=== PATIENT | female | born 1950 | race Caucasian/White ===

== ENCOUNTER 2020-10-11 10:53 | Emergency (ER) | payer MEDICARE ==
[~2020-10-11] VITALS: Ht 165.1 cm; Wt 63.1 kg
[~2020-10-11 10:53] MED LIST: ACID1TAB7 PO; FLUT1BLS INH; GLIM4TAB PO; GLIP5TAB10 PO; INSU100C SQ-INSULIN; IPRA3AMP30 NPPB; IPRA4AER INH; LEVO500T47 PO; LINA1TAB5 PO; NICO-587 TD; PRED10TA14 PO; SIMV20TA19 PO; TRAM50TA2 PO; ZOLP10TA PO
--- NOTE | 2020-10-11 11:17 | NUR ---
Placed on 2L O2 in triage.
--- NOTE | 2020-10-11 11:26 | NUR ---
Pt moved from room 4 to room 1 with garage doors down and pt in a gown. Pt states she has been having off/on SI for the last 3 weeks due to eviction notice and living with an alcoholic for many years. 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 Pt gave verbal contract not to harm herself and belongings searched with no weapons present. Pt wants inpatient psych admit due to extreme feelings of powerlessness and hopelessness.
--- NOTE | 2020-10-11 11:42 | NUR ---
patent law specialist at bedside for evaluation at this time.
--- NOTE | 2020-10-11 12:00 | NUR ---
Report given to DIANA Kulkarni for meal break coverage and care transferred PLASTIC FRAME INSERTER for psych assessment remains in room at this time.
--- NOTE | 2020-10-11 12:15 | NUR ---
TASK RN: PT UP TO RESTROOM, COLLECTED URINE SAMPLE. SITTER OUTSIDE DOOR FOR SAFETY MONITORING.
--- NOTE | 2020-10-11 12:30 | NUR ---
Report received from meal break RN and care re-assumed. Pt with belongings packed at foot of bed awaiting registration for her cards before removal of all items and sitter in doorway for direct observation needs for pt safety. DIANA Kulkarni reports pt is being placed on a legal hold.
--- NOTE | 2020-10-11 12:32 | NUR ---
BETH RIVERA PT'S DAUGHTER, PT PROVIDED PHONE NUMBER FOR EMERGENCY.
[2020-10-11 12:39] LABS: BASOPHILS % (AUTO) 1 % (0-1); EOSINOPHILS % (AUTO) 1 % (1-7); LYMPHOCYTES % (AUTO) 20 % (22-44); MEAN CORPUSCULAR HEMOGLOBIN 30.4 pg (27.0-34.8); MEAN CORPUSCULAR HGB CONC 34.2 g/dL (32.4-35.8); MEAN PLATELET VOLUME 8.8 fL (7.4-10.4); MONOCYTES % (AUTO) 5 % (2-9); NEUTROPHILS % (AUTO) 74 % (42-75); PLATELET COUNT 240 x10^3/uL (130-400); RED BLOOD COUNT 6.34 x10^6/uL (3.82-5.3); RED CELL DISTRIBUTION WIDTH 14.1 % (9.6-15.2)
[2020-10-11 12:40] LABS: MD NO
[2020-10-11 12:49] LABS: ANION GAP 6 mmol/L (5-15); CHLORIDE 102 mmol/L (98-107); CREATININE 0.74 mg/dL (0.55-1.02)
[2020-10-11 12:50] LABS: ALBUMIN 3.9 g/dL (3.4-5.0); SALICYLATE LEVEL 3.4 mg/dL (2.8-20.0)
[2020-10-11] MEDS ORDERED: NICOTINE 21 MG/24 HR PATCH.TD24 TD PRN (13:00)
[2020-10-11] MEDS ORDERED: SERTRALINE 50MG TABLET PO SCH (13:00)
--- NOTE | 2020-10-11 13:06 | NUR ---
Belongings removed and locked in locker with H20 and socks removed. ED diet tray ordered.
[2020-10-11 13:09] LABS: AMPHETAMINE SCREEN, URINE Negative (Negative); BARBITURATE SCREEN, URINE Negative (Negative); BENZODIAZEPINE SCREEN, URINE Negative (Negative); CANNABINOID SCREEN, URINE Negative (Negative); COCAINE SCREEN, URINE Negative (Negative); METHADONE SCREEN, URINE Negative (Negative); OPIATE SCREEN, URINE Negative (Negative)
[2020-10-11] MEDS ORDERED: INSULIN REGULAR 100 UNITS/ML, 3ML VIAL IVPush ONE (13:30)
[2020-10-11] MEDS ORDERED: SODIUM CHLORIDE 0.9% 1,000ML IVBOLUS ONE (13:30)
[2020-10-11] MEDS ORDERED: LORazepam 0.5MG TABLET ONE (14:24)
[2020-10-11] MEDS ORDERED: SERTRALINE 50MG TABLET ONE (14:24)
[2020-10-11] MEDS ORDERED: INSULIN SINGLE DOSE, ER ONE (14:25)
[2020-10-11] MEDS ORDERED: LORazepam 0.5MG TABLET PO ONE (14:30)
--- NOTE | 2020-10-11 14:43 | NUR ---
IV started and NS bolus with medications ordered given as well. TIP CEMENTER for psych states FSBS recheck must be lowered before acceptance to floor allowed. Pt stated understanding of this.
--- NOTE | 2020-10-11 15:08 | NUR ---
FSBS reassessed with approx 400mL of NS bolus infused due to small size IV (22G) with noted result of 239. farmworker [employer] producing [employer] notified as well as throughput RN for [facility] notification for possible admission acceptance. Dinuba sandwaich on wheat provided. Removed chocolate chip cookies, milk, and potato chips from tray. Pt offered other drink than water and none requested.
--- NOTE | 2020-10-11 16:20 | NUR ---
Pt ate 80% of sandwich provided and re-wrapped last portion for later. IVF completed and site saline locked at this time. Pt resting and states Ativan admin helped her feelings of anxiety and discomfort some on reassessment.
[2020-10-11] MEDS ORDERED: NICOTINE 21 MG/24 HR PATCH.TD24 ONE (17:24)
--- NOTE | 2020-10-11 17:29 | NUR ---
Pt swabbed for covid for [facility] admission at this time and walked down to lab. pest control chemical technician acknowledged delivery of specimen.
--- NOTE | 2020-10-11 18:05 | NUR ---
Attempt to call report to [facility] unsuccessful. RN not able to come to the phone and will call back for report.
[2020-10-11 18:08] VITALS: BP 158/78
--- NOTE | 2020-10-11 18:49 | NUR ---
Throughput RN states that Covid swab was not run. Repeat swab performed and walked down to lab.
--- NOTE | 2020-10-11 18:50 | NUR ---
Report from landon rn With assessment patient continues to endorse si/sa Sitter within direct eyeline Room controlled with psychiatric precautions Patient updated on estimated poc -awaiting covid result
--- NOTE | 2020-10-11 19:03 | NUR ---
Report givento DIANA Ayala and care transferred.
[2020-10-11] MEDS ORDERED: GABA600T PO (21:29)
[2020-10-11] MEDS ORDERED: SIMV20TA19 PO (21:30)
[2020-10-11] MEDS ORDERED: LISI-606 PO (21:30)
[2020-10-11] MEDS ORDERED: METF10007 PO (21:31)
== END 2020-10-11 19:46 | disposition other institution (70) ==
LOC: ED 12:46
DX: F32.9 Major depressive disorder, single episode, unspecified (principal); E11.9 Type 2 diabetes mellitus without complications; E78.5 Hyperlipidemia, unspecified
CPT/HCPCS: 36415; 80048; 80299; 80307; 80320; 82040; 82962; 84443; 85025; 96361; 96374; 99283; J1815; J7030; 80329; G0480